=== PATIENT | male | born 1935 | race Caucasian/White ===

== ENCOUNTER 2017-10-17 17:52 | Emergency (ER) | payer MEDICARE ==
[~2017-10-17 17:52] MED LIST: ALLO300 PO; APIX5TAB PO; CARV25TA PO; ENAL20TA81 PO; GLIP5 PO; LASI20TA PO; LEVE500T10 PO; LEVEMIR SQ; MEVA40TA6 PO; OMEP20TA PO; SPIR50 PO
[2017-10-17 18:16] VITALS: BP 138/64; PULSE 76; RESP 18; TEMP 98.3; O2SAT 96
--- NOTE | 2017-10-17 19:53 | PD ---
HPI Chief Complaint: General Weakness Time Seen by Provider: 18:10 Travel History International Travel<30 days: No Contact w/Intl Traveler<30days: No Traveled to known affect area: No History of Present Illness HPI 82-year-old male presents emergency department for evaluation of nausea and vomiting 7 days. Patient feels weak and tired. He is formerly a [facility] patient. He decided today to revoke hospice and be treated aggressively. He was on hospice for failure to thrive. Has significant cardiac history. No other symptoms to report. PFSH Past Medical History Hx Anticoagulant Therapy: Yes (ELIQUIS) Arthritis: No Asthma: No Blood Disorders: No Anxiety: No Depression: Yes Heart Rhythm Problems: No Cancer: No Cardiac Catheterization: Yes Cardiovascular Problems: Yes High Cholesterol: No Chest Pain: No Congestive Heart Failure: Yes (EF 30%) COPD: No Diabetes: Yes Diminished Hearing: No Endocrine: Yes Gastrointestinal Disorders: No GERD: No Glaucoma: No Genitourinary: No Hepatitis: No Hiatal Hernia: No Hypertension: Yes Immune Disorder: No Inguinal Hernia: Yes Kidney Stones: No Musculoskeletal: No Neurologic: No Psychiatric: No Reproductive: No Respiratory: No Integumentary: No Migraines: Yes Myocardial Infarction: Yes Renal Failure: Yes (STAGE 3) Sleep Apnea: No Thyroid Disease: No Ulcer: No Past Surgical History Abdominal Surgery: Yes (multiple [id number]) Body Medical Devices: STERNAL WIRES Cardiac Surgery: Yes (1982 & 1998) Coronary Artery Bypass Graft: Yes (x2) Coronary Stent: Yes Eye Surgery: Yes (LEFT EYE IN 1956) Genitourinary Surgery: No Other Surgery: Yes (RIGHT CAROTID ENDARTERECTOMY, BILAT LEG VESSEL BYPASS) Social History Alcohol Use: No Tobacco Use: No (FORMER) Substance Use: No Allergies-Medications (Allergen,Severity, Reaction): Coded Allergies: No Known Allergies (Verified , 01/11/16) Reported Meds & Prescriptions Reported Meds & Active Scripts Active Lasix (Furosemide) 20 Mg Tab 60 Mg PO DAILY 7 Days Reported Levemir Insulin (Insulin Detemir) 100 Units/Ml Inj 35 Units SQ HS Carvedilol 25 mg (Carvedilol) 25 Mg Tab 1 Tab PO BID Zyloprim (Allopurinol) 300 Mg Tab 300 Mg PO DAILY Glipizide 5 Mg Tab 5 Mg PO BID Levetiracetam 500 Mg Tab 500 Mg PO BID Eliquis (Apixaban) 5 Mg Tab 5 Mg PO BID Aldactone 50 Mg Tab (Spironolactone) 50 Mg Tab 50 Mg PO DAILY Lasix (Furosemide) 20 Mg Tab 40 Mg PO DAILY Omeprazole 20 mg (Omeprazole) 20 Mg Tab 20 Mg PO DAILY Mevacor (Lovastatin) 40 Mg Tab 40 Mg PO HS Vasotec (Enalapril Maleate) 20 Mg Tab 20 Mg PO BID Review of Systems Except as stated in HPI: all other systems reviewed are Neg Physical Exam Narrative Chronically ill-appearing elderly male patient, thin, sitting in wheelchair, in no acute distress. He appears nontoxic. Even respirations. Normal heart rate. No obvious deformities. He does speak clearly. Data Data Last Documented VS Vital Signs Date Time Temp Pulse Resp B/P (MAP) Pulse Ox O2 Delivery O2 Flow Rate FiO2 10/17/17 18:16 98.3 76 18 138/64 (88) 96 Orders MDM Medical Decision Making Medical Screen Exam Complete: Yes Emergency Medical Condition: Yes Medical Record Reviewed: Yes Differential Diagnosis Failure to thrive versus electrolyte abnormality versus dehydration versus gastroenteritis Narrative Course 82-year-old male presents to emergency department for evaluation. Patient appears nontoxic. He does appear frail however. Workup is initiated in triage. Prior to bed placement, patient and his family choose to leave. AMA: The risks of leaving against medical advice without further evaluation treatment were discussed with the patient. These risks include cardiac dysfunction, cardiac dysrhythmia, possible heart attack, possible stroke or . The patient indicated understanding of these risks and appeared to have the capacity to make this decision. Diagnosis Primary Impression: Nausea & vomiting Additional Impression: Weakness Disposition: 07 AGAINST MEDICAL ADVICE Condition: Stable SarmadGlennDreaelroy TRACEY Oct 17, 2017 19:53
== END 2017-10-17 19:50 | disposition left against medical advice (07) ==
LOC: NED 17:52
DX: R11.2 Nausea with vomiting, unspecified (principal); R53.1 Weakness; I13.0 Hypertensive heart and chronic kidney disease with heart failure and stage 1 through stage 4 chronic kidney disease, or unspecified chronic kidney disease; I50.9 Heart failure, unspecified; N18.3 Chronic kidney disease, stage 3 (moderate); E11.22 Type 2 diabetes mellitus with diabetic chronic kidney disease; Z79.4 Long term (current) use of insulin; Z79.899 Other long term (current) drug therapy
CPT/HCPCS: 99281